=== PATIENT | female | born 1995 | race Two or more races ===

== ENCOUNTER 2023-09-06 18:32 | Emergency (ER) | payer OTHER ==
[~2023-09-06] VITALS: Ht 152.4 cm; Wt 77.1 kg
[2023-09-06] MEDS ORDERED: ACETAMINOPHEN 500 MG GEL..CAP PO ONE (19:30)
[2023-09-06 19:44] LABS: HEMOGLOBIN 12.2 g/dL (12.0-15.00); MEAN CELL VOLUME 86.8 fL (80.00-100.00); MEAN CORPUSCULAR HEMOGLOBIN 30.2 pg (27.00-32.0); MEAN CORPUSCULAR HGB CONC 34.8 g/dl (32.0-36.0); PLATELET COUNT 229 K/uL (150-450); RED BLOOD COUNT 4.03 M/uL (4.00-6.00); RED CELL DISTRIBUTION WIDTH 13.8 % (11.5-14.5)
[2023-09-06 21:19] LABS: URINE APPEARANCE Clear; URINE BILIRRUBIN Negative (NEGATIVE); URINE BLOOD Negative; URINE COLOR Yellow; URINE GLUCOSE Negative (NEGATIVE); URINE LEUKOCYTE Negative; URINE NITRATE Negative; URINE PROTEIN Negative (NEGATIVE); URINE UROBILINOGEN 0.2 E.U./dl
[2023-09-06 21:23] LABS: URINE BACTERIA 2313.2 uL (0.0-1933); URINE EPITHELIAL CELLS 36.2 uL (0.0-38.8); URINE RBC 8.3 uL (0.0-20.8); URINE WBC 17.1 uL (0.0-23.2)
[2023-09-06] MEDS ORDERED: NITROFURANTOIN100 MG PO (21:40)
== END 2023-09-06 22:12 | disposition home or self-care (01) ==
LOC: ER 18:33
PROVIDERS: General Practice
DX: O23.42 Unspecified infection of urinary tract in pregnancy, second trimester (principal); O34.12 Maternal care for benign tumor of corpus uteri, second trimester; O32.1XX0 Maternal care for breech presentation, not applicable or unspecified; N39.0 Urinary tract infection, site not specified; Z3A.19 19 weeks gestation of pregnancy

== ENCOUNTER 2023-09-21 01:18 | Inpatient (IN) | payer OTHER ==
[~2023-09-21] VITALS: Ht 152.4 cm; Wt 77.1 kg
[~2023-09-21 01:18] MED LIST: NITROFURANTOIN100 MG PO
[2023-09-21] MEDS ORDERED: RINGERS SOLUTION,LACTATED 1,000 ML IV SCH (01:30)
[2023-09-21] MEDS ORDERED: PRENATAL TABLE1 EAC1 PO (01:40)
[2023-09-21] MEDS ORDERED: MIRALAX17 GM PO (01:40)
[2023-09-21 02:01] LABS: PH,URINE 7.5 (5.0-8.0); URINE APPEARANCE Clear; URINE BILIRRUBIN Negative (NEGATIVE); URINE BLOOD Small; URINE COLOR Yellow; URINE GLUCOSE Negative (NEGATIVE); URINE LEUKOCYTE Moderate; URINE NITRATE Negative; URINE PROTEIN Negative (NEGATIVE); URINE UROBILINOGEN 0.2 E.U./dl
[2023-09-21 02:05] LABS: URINE EPITHELIAL CELLS 43.7 uL (0.0-38.8); URINE RBC 34.2 uL (0.0-20.8); URINE WBC 223.5 uL (0.0-23.2)
[2023-09-21] MEDS ORDERED: MORPHINE SULFATE 4 MG/ML VIAL IV STA ×2 (02:09→13:05)
[2023-09-21 02:19] LABS: HEMATOCRIT 35.9 % (36.0-45.00); HEMOGLOBIN 12.2 g/dL (12.0-15.00); INR 0.97; MEAN CELL VOLUME 87.1 fL (80.00-100.00); MEAN CORPUSCULAR HEMOGLOBIN 29.5 pg (27.00-32.0); MEAN CORPUSCULAR HGB CONC 33.9 g/dl (32.0-36.0); PARTIAL THROMBOPLASTIN TIME 27.6 SECONDS (22.0-34.0); PLATELET COUNT 233 K/uL (150-450); PROTHROMBIN TIME 10.2 SECONDS (9.0-11.5); RED BLOOD COUNT 4.12 M/uL (4.00-6.00); RED CELL DISTRIBUTION WIDTH 13.2 % (11.5-14.5)
[2023-09-21] MEDS ORDERED: CEFOXITIN SODIUM 2,000 MG VIAL IV SCH (02:20)
[2023-09-21 02:50] LABS: ALBUMIN 2.7 gm/dL (3.4-5.0); BILIRUBIN TOTAL 0.37 mg/dL (0.3-1.2); CALCIUM 9.1 mg/dL (8.5-10.1); CREATININE SERUM 0.56 mg/dL (0.55-1.02); GFR 129.86; POTASSIUM 4.08 mEq/L (3.5-5.1); TOTAL PROTEIN 6.7 gm/dL (6.4-8.2)
[2023-09-21] MEDS ORDERED: MORPHINE SULFATE 4 MG/ML VIAL IV PRN (04:40)
[2023-09-21] MEDS ORDERED: OXYTOCIN 20 UNITS/500ML RL PIGGYBAG IV SCH (12:15)
[2023-09-21] MEDS ORDERED: MISOPROSTOL 100 MCG TABLET VAG STA (12:30)
[2023-09-21] MEDS ORDERED: ERYTHROMYCIN BASE 1 GM TUBE OP SCH (13:45)
[2023-09-21] MEDS ORDERED: OXYTOCIN 1,000 ML IV SCH (13:45)
[2023-09-21] MEDS ORDERED: ACETAMINOPHEN WITH CODEINE 1 UDTAB TABLET PO PRN (13:45)
[2023-09-21] MEDS ORDERED: CHLORHEXIDINE GLUCONATE 120 ML BOTTLE TP SCH (13:45)
[2023-09-21] MEDS ORDERED: KETOROLAC TROMETHAMINE 10 MG TABLET PO SCH (18:00)
== END 2023-09-22 10:33 | disposition home or self-care (01) | DRG 805 ==
LOC: LDR → OB/GYN 15:36
PROVIDERS: ADMIT Obstetrics & Gynecology Maternal & Fetal Medicine; ATTEND Obstetrics & Gynecology Maternal & Fetal Medicine
PROC: 10E0XZZ Delivery of Products of Conception, External Approach (ICD-10-PCS; principal; 2023-09-21)
PROC: 4A1HXCZ Monitoring of Products of Conception, Cardiac Rate, External Approach (ICD-10-PCS; 2023-09-21)
PROC: BY4CZZZ Ultrasonography of Second Trimester, Single Fetus (ICD-10-PCS; 2023-09-21)
PROC: 3E033VJ Introduction of Other Hormone into Peripheral Vein, Percutaneous Approach (ICD-10-PCS; 2023-09-21)
PROC: 3E0P7VZ Introduction of Hormone into Female Reproductive, Via Natural or Artificial Opening (ICD-10-PCS; 2023-09-21)
DX: O36.4XX0 Maternal care for intrauterine death, not applicable or unspecified (principal); O34.32 Maternal care for cervical incompetence, second trimester; Z37.1 Single stillbirth; O34.12 Maternal care for benign tumor of corpus uteri, second trimester; Z3A.21 21 weeks gestation of pregnancy; Z20.822 Contact with and (suspected) exposure to COVID-19

== ENCOUNTER 2024-05-06 06:58 | Day surgery (SDC) | payer OTHER ==
[2024-05-04 15:16] LABS: HEMATOCRIT 36.5 % (36.0-45.00); HEMOGLOBIN 12.3 g/dL (12.0-15.00); MEAN CELL VOLUME 85.8 fL (80.00-100.00); MEAN CORPUSCULAR HGB CONC 33.8 g/dl (32.0-36.0); PLATELET COUNT 252 K/uL (150-450); RED BLOOD COUNT 4.26 M/uL (4.00-6.00)
[2024-05-04 15:50] LABS: INR 0.94; PARTIAL THROMBOPLASTIN TIME 26.5 SECONDS (22.0-34.0); PROTHROMBIN TIME 10.3 SECONDS (9.0-11.5)
[2024-05-04 15:56] LABS: ALBUMIN 2.9 gm/dL (3.4-5.0); BILIRUBIN TOTAL 0.2 mg/dL (0.3-1.2); CALCIUM 9.4 mg/dL (8.5-10.1); CREATININE SERUM 0.57 mg/dL (0.55-1.02); GFR 127.23; POTASSIUM 4.07 mEq/L (3.5-5.1); TOTAL PROTEIN 6.9 gm/dL (6.4-8.2)
[~2024-05-06 06:58] MED LIST changes: +MIRALAX17 GM PO; +PEPCID AC10 MG PO; +PRENATAL TABLE1 EAC1 PO; +TYLENOL325 MG PO
[2024-05-06] MEDS ORDERED: POVIDONE-IODINE 118 ML BOTT TOP SCH (10:15)
[2024-05-06] MEDS ORDERED: MORPHINE SULFATE 4 MG/ML VIAL IV ONE (12:50)
== END 2024-05-06 14:40 | disposition home or self-care (01) ==
LOC: CIR.AMB 06:58
PROVIDERS: ATTEND Obstetrics & Gynecology Maternal & Fetal Medicine
DX: O34.32 Maternal care for cervical incompetence, second trimester (principal); Z3A.14 14 weeks gestation of pregnancy

== ENCOUNTER 2024-07-24 10:03 | Inpatient (IN) | payer OTHER ==
[~2024-07-24] VITALS: Ht 152.4 cm; Wt 83.5 kg
[2024-07-24 10:46] VITALS: BP 100/67
[2024-07-24] MEDS ORDERED: BETAMETHASONE ACETATE,SOD PHOS 30 MG/5 ML ML IM STA (11:14)
[2024-07-24] MEDS ORDERED: MAGNESIUM SULFATE IN WATER 4 GM/100 ML PIGGYBACK IV ONE (11:15)
[2024-07-24] MEDS ORDERED: MAGNESIUM SULFATE IN WATER 500 ML IV SCH (11:15)
[2024-07-24] MEDS ORDERED: RINGERS SOLUTION,LACTATED 1,000 ML IV SCH (11:45)
[2024-07-24 12:17] LABS: BASO % 0.3 % (0.1-1.2); EOS # 0.11 (0.04-0.54); EOS % 0.9 % (0.7-7.0); HEMATOCRIT 33.9 % (34.1-44.9); HEMOGLOBIN 11.2 g/dL (11.2-15.7); LYMPH # 1.94 (1.18-3.74); LYMPH % 15.6 % (19.3-53.1); MEAN CORPUSCULAR HEMOGLOBIN 28.8 pg (25.6-32.2); MONO # 0.69 (0.24-0.82); MONO % 5.5 % (4.7-12.5); NEUT # 9.57 (1.56-6.13); NEUT % 76.8 % (34.0-71.1); PLATELET COUNT 250 K/uL (163-369); RED BLOOD COUNT 3.89 M/uL (3.93-5.22); RED CELL DISTRIBUTION WIDTH 13.2 % (11.6-14.4)
[2024-07-24 12:41] LABS: INR 0.94; PARTIAL THROMBOPLASTIN TIME 26.6 SECONDS (22.0-34.0); PROTHROMBIN TIME 10.3 SECONDS (9.0-11.5)
[2024-07-24 12:56] LABS: ALBUMIN 2.6 gm/dL (3.4-5.0); BILIRUBIN TOTAL 0.17 mg/dL (0.3-1.2); CALCIUM 8.7 mg/dL (8.5-10.1); CREATININE SERUM 0.48 mg/dL (0.55-1.02); GFR 155.14; GLOBULINA 3.8 G/DL (2.4-3.5); POTASSIUM 4.26 mEq/L (3.5-5.1); TOTAL PROTEIN 6.4 gm/dL (6.4-8.2)
[2024-07-24] MEDS ORDERED: CEFOXITIN SODIUM 2,000 MG VIAL IV SCH (13:00)
[2024-07-24 15:06] VITALS: BP 107/68
[2024-07-24] MEDS ORDERED: ACETAMINOPHEN 500 MG GEL..CAP PO ONE (18:50)
[2024-07-24 19:54] VITALS: BP 93/57
[2024-07-24] MEDS ORDERED: ACETAMINOPHEN 500 MG GEL..CAP PO PRN (21:15)
[2024-07-24 23:04] VITALS: BP 106/70; O2SAT 100
[2024-07-25 04:04] VITALS: BP 104/71
[2024-07-25 04:24] VITALS: BP 104/71
[2024-07-25 07:16] VITALS: BP 98/62
[2024-07-25 11:30] VITALS: BP 104/72
[2024-07-25] MEDS ORDERED: BETAMETHASONE ACETATE,SOD PHOS 30 MG/5 ML ML IM ONE (11:30)
[2024-07-25] MEDS ORDERED: NIFEDIPINE 30 MG TAB.SA.OSM PO SCH ×2 (12:00)
[2024-07-25 15:33] VITALS: BP 96/63
[2024-07-25 17:05] VITALS: BP 107/72
[2024-07-26] VITALS: BP 95/65
[2024-07-26 08:00] VITALS: BP 90/60
== END 2024-07-26 12:39 | disposition home or self-care (01) | DRG 833 ==
LOC: NST 10:03 → LDR 10:55 → OB/GYN 07-25 15:14
PROVIDERS: ADMIT Obstetrics & Gynecology Maternal & Fetal Medicine; ATTEND Obstetrics & Gynecology Maternal & Fetal Medicine
PROC: 4A1HXCZ Monitoring of Products of Conception, Cardiac Rate, External Approach (ICD-10-PCS; principal; 2024-07-24)
DX: O34.32 Maternal care for cervical incompetence, second trimester (principal); Z3A.24 24 weeks gestation of pregnancy

== ENCOUNTER 2024-08-03 17:30 | Inpatient (IN) | payer OTHER ==
[~2024-08-03] VITALS: Ht 152.4 cm; Wt 82.6 kg
[~2024-08-03 17:30] MED LIST changes: +CEFOXITIN SODIUM 2,000 MG VIAL IV ONE; +MAGNESIUM SULFATE IN WATER 0.04 GM/ML IV.SOLN IV ONE
[2024-08-03 17:41] VITALS: BP 121/68
[2024-08-03 17:56] LABS: BASO % 0.2 % (0.1-1.2); EOS # 0.03 (0.04-0.54); EOS % 0.2 % (0.7-7.0); HEMATOCRIT 36.6 % (34.1-44.9); HEMOGLOBIN 12.2 g/dL (11.2-15.7); LYMPH # 2.44 (1.18-3.74); LYMPH % 14.8 % (19.3-53.1); MEAN CORPUSCULAR HEMOGLOBIN 28.2 pg (25.6-32.2); MONO # 0.92 (0.24-0.82); MONO % 5.6 % (4.7-12.5); NEUT # 12.87 (1.56-6.13); NEUT % 77.7 % (34.0-71.1); PLATELET COUNT 296 K/uL (163-369); RED BLOOD COUNT 4.32 M/uL (3.93-5.22); RED CELL DISTRIBUTION WIDTH 12.9 % (11.6-14.4)
[2024-08-03] MEDS ORDERED: RINGERS SOLUTION,LACTATED 1,000 ML IV SCH (18:00)
[2024-08-03] MEDS ORDERED: CEFOXITIN SODIUM 2,000 MG VIAL IV SCH (18:00)
[2024-08-03] MEDS ORDERED: MAGNESIUM SULFATE IN WATER 500 ML IV SCH (18:00)
[2024-08-03 18:18] LABS: INR < 0.93; PROTHROMBIN TIME 10.2 SECONDS (9.0-11.5)
[2024-08-03 18:24] LABS: ALBUMIN 2.8 gm/dL (3.4-5.0); BILIRUBIN TOTAL 0.19 mg/dL (0.3-1.2); CALCIUM 9.7 mg/dL (8.5-10.1); CREATININE SERUM 0.56 mg/dL (0.55-1.02); GFR 128.9; GLOBULINA 4.2 G/DL (2.4-3.5); POTASSIUM 4.24 mEq/L (3.5-5.1)
[2024-08-03 19:36] VITALS: BP 103/71
[2024-08-03 23:37] VITALS: BP 98/63
[2024-08-04 04:00] VITALS: BP 100/60
[2024-08-04 06:19] VITALS: BP 95/62; O2SAT 98
[2024-08-04] MEDS ORDERED: NIFEDIPINE 60 MG TAB.SA.OSM PO ONE (08:23)
[2024-08-04] MEDS ORDERED: PNV,CALCIUM 72/IRON/FOLIC ACID 1 TAB TABLET PO SCH (09:00)
[2024-08-04] MEDS ORDERED: ENOXAPARIN SODIUM 40 MG/0.4 ML SYRINGE SUBCUTANEO SCH (09:00)
[2024-08-04] MEDS ORDERED: NIFEDIPINE 60 MG TAB.SA.OSM PO SCH (09:00)
[2024-08-04 10:59] VITALS: BP 114/72
[2024-08-04 15:46] VITALS: BP 99/60
[2024-08-04 20:23] VITALS: BP 103/66
[2024-08-05 00:22] VITALS: BP 91/59
[2024-08-05 05:00] VITALS: BP 97/64
[2024-08-05 08:10] VITALS: BP 90/65
[2024-08-05 13:06] VITALS: BP 106/71; O2SAT 98
[2024-08-05 16:00] VITALS: BP 115/77
[2024-08-06 00:39] VITALS: BP 102/64
[2024-08-06 05:49] VITALS: BP 100/60
[2024-08-06 08:36] VITALS: BP 104/65; O2SAT 98
[2024-08-06 13:20] VITALS: BP 100/67; O2SAT 98
[2024-08-06 16:00] VITALS: BP 109/68; O2SAT 97
[2024-08-06 20:00] VITALS: BP 115/74
[2024-08-06] MEDS ORDERED: PATIENTS OWN MEDICATION (MEDICAMENTO EN PISO NEVERA) VAG SCH (21:00)
[2024-08-07 01:33] VITALS: BP 100/64
[2024-08-07 06:32] VITALS: BP 101/60
[2024-08-07 09:21] VITALS: BP 94/60
[2024-08-07 16:47] VITALS: BP 115/71
[2024-08-08] VITALS: BP 105/68
[2024-08-08 09:21] VITALS: BP 102/64
[2024-08-08 14:47] VITALS: BP 100/65
[2024-08-08 17:53] VITALS: BP 113/74
[2024-08-08 17:54] VITALS: BP 113/74
[2024-08-08 21:31] VITALS: BP 102/70
[2024-08-09 00:38] VITALS: BP 117/67
[2024-08-09 06:16] VITALS: BP 97/64
[2024-08-09 09:04] VITALS: BP 102/68
[2024-08-09] MEDS ORDERED: ACETAMINOPHEN 500 MG GEL..CAP PO PRN (11:45)
[2024-08-09 16:20] VITALS: BP 117/73
[2024-08-10 00:11] VITALS: BP 105/62
[2024-08-10 08:00] VITALS: BP 103/64
[2024-08-10 16:00] VITALS: BP 114/75
[2024-08-10 21:29] VITALS: BP 96/60
[2024-08-11] VITALS: BP 90/50
[2024-08-11 08:00] VITALS: BP 103/68
[2024-08-11] MEDS ORDERED: FAMOtidine 20 MG TABLET PO SCH (09:00)
[2024-08-11 16:31] VITALS: BP 97/60
[2024-08-12] VITALS: BP 103/70
[2024-08-12 08:58] VITALS: BP 115/57
[2024-08-12 13:54] VITALS: BP 103/63
[2024-08-12 16:38] VITALS: BP 98/64
[2024-08-13] VITALS: BP 101/58
[2024-08-13 08:40] VITALS: BP 105/54
[2024-08-13] MEDS ORDERED: DIPHTH,PERTUSS(ACELL),TET VAC 0.5 ML VIAL IM NR (09:00)
[2024-08-13 10:20] LABS: BASO % 0.2 % (0.1-1.2); EOS # 0.07 (0.04-0.54); EOS % 0.6 % (0.7-7.0); HEMATOCRIT 33.8 % (34.1-44.9); HEMOGLOBIN 11.2 g/dL (11.2-15.7); LYMPH # 1.55 (1.18-3.74); LYMPH % 14.3 % (19.3-53.1); MEAN CORPUSCULAR HEMOGLOBIN 28.2 pg (25.6-32.2); MONO # 0.54 (0.24-0.82); NEUT # 8.52 (1.56-6.13); NEUT % 78.7 % (34.0-71.1); PLATELET COUNT 239 K/uL (163-369); RED BLOOD COUNT 3.97 M/uL (3.93-5.22); RED CELL DISTRIBUTION WIDTH 13.2 % (11.6-14.4)
[2024-08-13 11:05] LABS: INR 0.98; PARTIAL THROMBOPLASTIN TIME 25.1 SECONDS (22.0-34.0); PROTHROMBIN TIME 10.7 SECONDS (9.0-11.5)
[2024-08-13 13:27] VITALS: BP 105/67
[2024-08-13 17:22] VITALS: BP 115/81
[2024-08-14 01:00] VITALS: BP 99/64
[2024-08-14 08:00] VITALS: BP 110/78
[2024-08-14 16:46] VITALS: BP 106/71
[2024-08-15 00:18] VITALS: BP 97/64
[2024-08-15 08:00] VITALS: BP 92/61
[2024-08-15 17:18] VITALS: BP 130/82
[2024-08-16 00:13] VITALS: BP 98/66
[2024-08-16 08:00] VITALS: BP 90/55
[2024-08-16 16:00] VITALS: BP 98/65
[2024-08-16 23:46] VITALS: BP 104/67
[2024-08-17 08:00] VITALS: BP 108/70
[2024-08-17 15:50] VITALS: BP 92/69
[2024-08-18] MEDS ORDERED: MAGNESIUM SULFATE IN WATER 0.04 GM/ML IV.SOLN IV ONE ×2 (00:03→01:00)
[2024-08-18 00:32] VITALS: BP 110/79
[2024-08-18 03:00] VITALS: BP 98/61
[2024-08-18 06:22] VITALS: BP 95/67; O2SAT 97
[2024-08-18 13:51] VITALS: BP 96/63
[2024-08-18] MEDS ORDERED: ACETAMINOPHEN 500 MG GEL..CAP PO PRN (14:45)
[2024-08-18 16:05] VITALS: BP 92/60
[2024-08-19 01:24] VITALS: BP 100/63
[2024-08-19 08:22] VITALS: BP 111/79
[2024-08-19 12:26] VITALS: BP 117/80
[2024-08-19] MEDS ORDERED: NIFEDIPINE 30 MG TAB.SA.OSM PO ONE (14:42)
[2024-08-19 16:04] VITALS: BP 111/70
[2024-08-19] MEDS ORDERED: NIFEDIPINE 30 MG TAB.SA.OSM PO SCH (17:00)
[2024-08-20] VITALS: BP 91/56
[2024-08-20 08:00] VITALS: BP 97/57
[2024-08-20 16:18] VITALS: BP 118/79
[2024-08-21 00:50] VITALS: BP 100/66
[2024-08-21 08:00] VITALS: BP 103/66
[2024-08-21 17:04] VITALS: BP 108/71
[2024-08-21 20:56] VITALS: BP 100/61
[2024-08-21 23:58] VITALS: BP 112/73
[2024-08-22 08:49] VITALS: BP 90/60
[2024-08-22 18:06] VITALS: BP 109/71
[2024-08-23] VITALS: BP 101/67
[2024-08-23 05:00] VITALS: BP 101/69
[2024-08-23 08:37] VITALS: BP 98/66
[2024-08-23 16:36] VITALS: BP 105/70
[2024-08-24 01:32] VITALS: BP 97/63
[2024-08-24 08:00] VITALS: BP 107/71
[2024-08-24] MEDS ORDERED: ONDANSETRON 4 MG TAB.RAPDIS PO NR (14:00)
[2024-08-24 15:55] VITALS: BP 90/56
[2024-08-24 23:54] VITALS: BP 96/65
[2024-08-25 08:46] VITALS: BP 124/77
== END 2024-08-25 10:31 | disposition home or self-care (01) | DRG 831 ==
LOC: LDR 17:30 → OB/GYN 08-04 08:51
PROVIDERS: Obstetrics & Gynecology Gynecology; ADMIT Obstetrics & Gynecology Maternal & Fetal Medicine; ATTEND Obstetrics & Gynecology Maternal & Fetal Medicine
PROC: 4A1HXCZ Monitoring of Products of Conception, Cardiac Rate, External Approach (ICD-10-PCS; principal; 2024-08-03)
PROC: BY4CZZZ Ultrasonography of Second Trimester, Single Fetus (ICD-10-PCS; 2024-08-06)
PROC: BU4CZZZ Ultrasonography of Uterus and Ovaries (ICD-10-PCS; 2024-08-06)
PROC: BY4CZZZ Ultrasonography of Second Trimester, Single Fetus (ICD-10-PCS; 2024-08-12)
PROC: BU4CZZZ Ultrasonography of Uterus and Ovaries (ICD-10-PCS; 2024-08-12)
PROC: BU4CZZZ Ultrasonography of Uterus and Ovaries (ICD-10-PCS; 2024-08-24)
PROC: BU4CZZZ Ultrasonography of Uterus and Ovaries (ICD-10-PCS; 2024-08-24)
DX: O34.32 Maternal care for cervical incompetence, second trimester (principal); O60.02 Preterm labor without delivery, second trimester; O26.872 Cervical shortening, second trimester; O36.8120 Decreased fetal movements, second trimester, not applicable or unspecified; O26.842 Uterine size-date discrepancy, second trimester; Z3A.27 27 weeks gestation of pregnancy

== ENCOUNTER 2024-09-02 18:35 | Inpatient (IN) | payer OTHER ==
[~2024-09-02] VITALS: Ht 152.4 cm; Wt 82.6 kg
[~2024-09-02 18:35] MED LIST changes: -CEFOXITIN SODIUM 2,000 MG VIAL IV ONE; -MAGNESIUM SULFATE IN WATER 0.04 GM/ML IV.SOLN IV ONE
[2024-09-02 18:55] VITALS: BP 105/71
[2024-09-02] MEDS ORDERED: BETAMETHASONE ACETATE,SOD PHOS 30 MG/5 ML ML IM SCH (19:30)
[2024-09-02] MEDS ORDERED: MAGNESIUM SULFATE IN WATER 500 ML IV SCH (19:30)
[2024-09-02] MEDS ORDERED: RINGERS SOLUTION,LACTATED 1,000 ML IV SCH (19:30)
[2024-09-02] MEDS ORDERED: MAGNESIUM SULFATE IN WATER 100 ML IV NR (19:45)
[2024-09-02] MEDS ORDERED: NIFEDIPINE20 MG PO (20:28)
[2024-09-02 20:49] LABS: BASO % 0.3 % (0.1-1.2); EOS # 0.06 (0.04-0.54); EOS % 0.4 % (0.7-7.0); LYMPH # 2.42 (1.18-3.74); LYMPH % 16.6 % (19.3-53.1); MEAN PLATELET VOLUME 11.80 fl (9.4-12.4); MONO # 0.97 (0.24-0.82); MONO % 6.6 % (4.7-12.5); NEUT # 10.87 (1.56-6.13); NEUT % 74.5 % (34.0-71.1); RED CELL DISTRIBUTION WIDTH 13.7 % (11.6-14.4)
[2024-09-02] MEDS ORDERED: NIFEDIPINE 30 MG TAB.SA.OSM PO SCH (21:00)
[2024-09-02 21:08] LABS: INR 0.96
[2024-09-02 21:14] LABS: ALT/SGPT 14.0 U/L (12-78); AST/SGOT 7.0 U/L (15-37); BILIRUBIN TOTAL 0.19 mg/dL (0.3-1.2); BUN CREA RATIO 18.0 (7.0-25.0); CREATININE SERUM 0.51 mg/dL (0.55-1.02); GFR 143.59; GLOBULINA 4.1 G/DL (2.4-3.5); GLUCOSE FASTING 76.0 mg/dL (65-100); OSMOLALITY SERUM 279.0 MOSM/KG (275-295)
[2024-09-02 23:22] VITALS: BP 107/68
[2024-09-03 03:14] VITALS: BP 105/67
[2024-09-03] MEDS ORDERED: ACETAMINOPHEN 500 MG GEL..CAP PO PRN (04:45)
[2024-09-03 06:28] VITALS: BP 96/59; O2SAT 97
[2024-09-03] MEDS ORDERED: FAMOTIDINE/PF 20 MG in 0.9 % SODIUM CHLORIDE 8 ML IV PUSH SCH (09:00)
[2024-09-03] MEDS ORDERED: ENOXAPARIN SODIUM 40 MG/0.4 ML SYRINGE SUBCUTANEO SCH (09:00)
[2024-09-03] MEDS ORDERED: PNV,CALCIUM 72/IRON/FOLIC ACID 1 TAB TABLET PO SCH (09:00)
[2024-09-03 11:40] VITALS: BP 108/70
[2024-09-03 13:03] VITALS: BP 124/83
[2024-09-03 16:00] VITALS: BP 107/66
[2024-09-04 02:22] VITALS: BP 106/68
[2024-09-04 08:21] VITALS: BP 94/62
[2024-09-04] MEDS ORDERED: NIFEDIPINE 30 MG TAB.SA.OSM PO NR (11:00)
[2024-09-04 17:32] VITALS: BP 100/68
[2024-09-04] MEDS ORDERED: NIFEDIPINE 30 MG TAB.SA.OSM PO SCH (21:00)
[2024-09-05 00:52] VITALS: BP 101/64
[2024-09-05 08:32] VITALS: BP 123/70
[2024-09-05] MEDS ORDERED: ONDANSETRON 4 MG TAB.RAPDIS PO SCH (13:00)
[2024-09-05 15:52] VITALS: BP 108/69
[2024-09-05 23:34] VITALS: BP 104/64
[2024-09-06 08:00] VITALS: BP 107/67
[2024-09-06 17:06] VITALS: BP 110/75
[2024-09-06 23:56] VITALS: BP 104/67
[2024-09-07 09:02] VITALS: BP 107/66
[2024-09-07 15:40] VITALS: BP 96/60
[2024-09-08 01:00] VITALS: BP 113/71
[2024-09-08 08:35] VITALS: BP 103/64
[2024-09-08 16:21] VITALS: BP 107/76
[2024-09-09] VITALS: BP 101/62
[2024-09-09 08:52] VITALS: BP 104/70
[2024-09-09 16:00] VITALS: BP 112/76
[2024-09-10 00:38] VITALS: BP 99/63
[2024-09-10 08:42] VITALS: BP 103/69; O2SAT 99
[2024-09-10 16:00] VITALS: BP 105/69
[2024-09-11 00:45] VITALS: BP 106/67
[2024-09-11 08:39] VITALS: BP 115/72
[2024-09-11 16:00] VITALS: BP 100/65
[2024-09-11] MEDS ORDERED: MAGNESIUM HYDROXIDE 30 ML BLIST.PACK PO SCH (21:00)
[2024-09-12 01:02] VITALS: BP 101/63
[2024-09-12 08:32] VITALS: BP 100/63
[2024-09-12 18:33] VITALS: BP 112/67
[2024-09-13] VITALS: BP 95/59
[2024-09-13 08:38] VITALS: BP 97/63
[2024-09-13 15:14] LABS: BASO % 0.4 % (0.1-1.2); EOS # 0.06 (0.04-0.54); EOS % 0.4 % (0.7-7.0); LYMPH # 1.91 (1.18-3.74); LYMPH % 13.7 % (19.3-53.1); MEAN PLATELET VOLUME 11.20 fl (9.4-12.4); MONO # 1.00 (0.24-0.82); MONO % 7.2 % (4.7-12.5); NEUT # 10.59 (1.56-6.13); NEUT % 75.7 % (34.0-71.1); RED CELL DISTRIBUTION WIDTH 14.1 % (11.6-14.4)
[2024-09-13 15:46] LABS: INR 0.96
[2024-09-13 16:00] VITALS: BP 133/71
[2024-09-14] VITALS: BP 107/68
[2024-09-14 08:39] VITALS: BP 107/67; O2SAT 99
[2024-09-14 18:31] VITALS: BP 93/59
[2024-09-15 00:08] VITALS: BP 110/66
[2024-09-15 08:21] VITALS: BP 99/64
[2024-09-15] MEDS ORDERED: ACETAMINOPHEN 500 MG GEL..CAP PO PRN (16:45)
[2024-09-15 17:08] VITALS: BP 100/63
[2024-09-16 00:01] VITALS: BP 113/80
[2024-09-16 08:00] VITALS: BP 90/52
[2024-09-16 16:13] VITALS: BP 102/62
[2024-09-17 02:20] VITALS: BP 100/66
[2024-09-17 08:00] VITALS: BP 99/60
[2024-09-17 17:01] VITALS: BP 100/68
[2024-09-18 02:47] VITALS: BP 100/62
[2024-09-18 08:58] VITALS: BP 99/63
[2024-09-18 16:26] VITALS: BP 114/62
[2024-09-19] VITALS: BP 98/62
[2024-09-19 08:17] VITALS: BP 93/67
[2024-09-19 16:00] VITALS: BP 118/75
[2024-09-20 00:35] VITALS: BP 104/66
[2024-09-20 07:54] VITALS: BP 111/72
[2024-09-20 15:55] VITALS: BP 109/74
[2024-09-21 00:35] VITALS: BP 97/65
[2024-09-21 09:09] VITALS: BP 100/66
[2024-09-21 16:07] VITALS: BP 100/65
[2024-09-22 01:20] VITALS: BP 99/69
[2024-09-22 09:43] VITALS: BP 105/63
[2024-09-22 16:14] VITALS: BP 103/65
[2024-09-23 00:45] VITALS: BP 100/65
[2024-09-23 08:06] VITALS: BP 97/68
[2024-09-23 15:53] VITALS: BP 101/66
[2024-09-24 02:00] VITALS: BP 94/60
[2024-09-24 08:02] VITALS: BP 96/61
[2024-09-24 16:00] VITALS: BP 100/65
[2024-09-25] VITALS: BP 100/65
[2024-09-25 09:01] VITALS: BP 98/63
[2024-09-25 16:22] VITALS: BP 106/67
[2024-09-26 00:08] VITALS: BP 109/68
[2024-09-26 08:00] VITALS: BP 107/67
[2024-09-26 15:26] VITALS: BP 100/63
[2024-09-26 23:56] VITALS: BP 101/68
[2024-09-27 08:00] VITALS: BP 98/63
[2024-09-27 15:42] VITALS: BP 90/61
[2024-09-28 00:08] VITALS: BP 95/65
[2024-09-28 08:30] VITALS: BP 100/60; O2SAT 99
[2024-09-28 09:33] LABS: BASO % 0.5 % (0.1-1.2); EOS # 0.09 (0.04-0.54); EOS % 1.0 % (0.7-7.0); LYMPH # 1.87 (1.18-3.74); LYMPH % 21.3 % (19.3-53.1); MEAN PLATELET VOLUME 10.70 fl (9.4-12.4); MONO # 0.64 (0.24-0.82); MONO % 7.3 % (4.7-12.5); NEUT # 5.94 (1.56-6.13); NEUT % 67.7 % (34.0-71.1); RED CELL DISTRIBUTION WIDTH 14.2 % (11.6-14.4)
[2024-09-28 09:56] LABS: URINE APPEARANCE Clear; URINE BILIRRUBIN Negative (NEGATIVE); URINE BLOOD Small; URINE COLOR Dark Yellow; URINE GLUCOSE Negative (NEGATIVE); URINE KETONE Trace (NEGATIVE); URINE LEUKOCYTE Trace; URINE NITRATE Negative; URINE PROTEIN Trace (NEGATIVE); URINE UROBILINOGEN 1.0 E.U./dl
[2024-09-28 09:59] LABS: URINE BACTERIA 555.6 uL (0.0-1933); URINE EPITHELIAL CELLS 20.1 uL (0.0-38.8); URINE RBC 61.3 uL (0.0-20.8); URINE WBC 47.9 uL (0.0-23.2)
[2024-09-28 10:06] LABS: URINE CAST 0.58 uL (0.0-1.40)
[2024-09-28 10:31] LABS: ALT/SGPT 15.0 U/L (12-78); AST/SGOT 9.0 U/L (15-37); BILIRUBIN TOTAL 0.22 mg/dL (0.3-1.2); BUN CREA RATIO 14.0 (7.0-25.0); CREATININE SERUM 0.58 mg/dL (0.55-1.02); GFR 123.79; GLOBULINA 3.9 G/DL (2.4-3.5); GLUCOSE FASTING 121.0 mg/dL (65-100); OSMOLALITY SERUM 283.0 MOSM/KG (275-295)
[2024-09-28 10:35] LABS: INR 0.98
[2024-09-28 16:19] VITALS: BP 109/76
[2024-09-29] VITALS: BP 98/65
[2024-09-29 09:11] VITALS: BP 119/78; O2SAT 99
[2024-09-29 16:16] VITALS: BP 128/74
[2024-09-29] MEDS ORDERED: ACETAMINOPHEN 500 MG GEL..CAP PO ONE (19:30)
[2024-09-30 00:23] VITALS: BP 101/66
[2024-09-30 09:14] VITALS: BP 100/64; O2SAT 99
[2024-09-30 17:20] VITALS: BP 100/64
[2024-10-01] VITALS: BP 92/60
[2024-10-01 09:02] VITALS: BP 125/76
== END 2024-10-01 09:27 | disposition home or self-care (01) | DRG 833 ==
LOC: LDR 18:35 → OB/GYN 09-03 08:43
PROVIDERS: Obstetrics & Gynecology Gynecology; ADMIT Obstetrics & Gynecology Maternal & Fetal Medicine; ATTEND Obstetrics & Gynecology Maternal & Fetal Medicine
PROC: 4A1HXCZ Monitoring of Products of Conception, Cardiac Rate, External Approach (ICD-10-PCS; principal; 2024-09-02)
PROC: BY4FZZZ Ultrasonography of Third Trimester, Single Fetus (ICD-10-PCS; 2024-09-07)
PROC: BU4CZZZ Ultrasonography of Uterus and Ovaries (ICD-10-PCS; 2024-09-07)
PROC: BY4FZZZ Ultrasonography of Third Trimester, Single Fetus (ICD-10-PCS; 2024-09-27)
PROC: BU4CZZZ Ultrasonography of Uterus and Ovaries (ICD-10-PCS; 2024-09-27)
PROC: BY47ZZZ Ultrasonography of Fetal Umbilical Cord (ICD-10-PCS; 2024-09-27)
DX: O26.873 Cervical shortening, third trimester (principal); O26.843 Uterine size-date discrepancy, third trimester; O36.8130 Decreased fetal movements, third trimester, not applicable or unspecified; O34.33 Maternal care for cervical incompetence, third trimester; O36.5930 Maternal care for other known or suspected poor fetal growth, third trimester, not applicable or unspecified; Z3A.29 29 weeks gestation of pregnancy

== ENCOUNTER 2024-10-10 21:55 | Inpatient (IN) | payer OTHER ==
[~2024-10-10] VITALS: Ht 152.4 cm; Wt 82.1 kg
[~2024-10-10 21:55] MED LIST changes: +NIFEDIPINE20 MG PO
[2024-10-10] MEDS ORDERED: BETAMETHASONE ACETATE,SOD PHOS 30 MG/5 ML ML ONE (22:14)
[2024-10-10 22:15] VITALS: BP 120/80
[2024-10-10] MEDS ORDERED: AMPICILLIN SODIUM 2,000 MG VIAL ONE (22:15)
[2024-10-10] MEDS ORDERED: MAGNESIUM SULFATE IN WATER 4 GM/100 ML PIGGYBACK IV ONE (22:15)
[2024-10-10] MEDS ORDERED: RINGERS SOLUTION,LACTATED 1,000 ML IV SCH (22:45)
[2024-10-10] MEDS ORDERED: MAGNESIUM SULFATE IN WATER 0.04 GM/ML IV.SOLN IV ONE (22:59)
[2024-10-10] MEDS ORDERED: MAGNESIUM SULFATE IN WATER 500 ML IV SCH (23:00)
[2024-10-10] MEDS ORDERED: MAGNESIUM SULFATE IN WATER 100 ML IV SCH (23:00)
[2024-10-10] MEDS ORDERED: AMPICILLIN SODIUM 2,000 MG VIAL IV ONE (23:00)
[2024-10-10] MEDS ORDERED: BETAMETHASONE ACETATE,SOD PHOS 30 MG/5 ML ML IM ONE (23:00)
[2024-10-10 23:21] VITALS: BP 112/61
[2024-10-10] MEDS ORDERED: NIFEDIPINE ER30 M1 PO (23:21)
[2024-10-10] MEDS ORDERED: VALTREX1000 MG PO (23:22)
[2024-10-10] MEDS ORDERED: PEPCID AC20 MG PO (23:23)
[2024-10-10 23:28] LABS: BASO % 0.3 % (0.1-1.2); EOS # 0.06 (0.04-0.54); EOS % 0.4 % (0.7-7.0); LYMPH # 2.43 (1.18-3.74); LYMPH % 18.1 % (19.3-53.1); MEAN PLATELET VOLUME 12.00 fl (9.4-12.4); MONO # 0.93 (0.24-0.82); MONO % 6.9 % (4.7-12.5); NEUT # 9.63 (1.56-6.13); NEUT % 72.1 % (34.0-71.1); RED CELL DISTRIBUTION WIDTH 14.2 % (11.6-14.4)
[2024-10-10 23:44] LABS: INR 0.94
[2024-10-10 23:48] LABS: ALT/SGPT 13.0 U/L (12-78); AST/SGOT 7.0 U/L (15-37); BILIRUBIN TOTAL 0.17 mg/dL (0.3-1.2); BUN CREA RATIO 10.0 (7.0-25.0); CREATININE SERUM 0.62 mg/dL (0.55-1.02); GFR 114.62; GLOBULINA 3.9 G/DL (2.4-3.5); GLUCOSE FASTING 115.0 mg/dL (65-100); OSMOLALITY SERUM 280.0 MOSM/KG (275-295)
[2024-10-11 03:33] VITALS: BP 121/76
[2024-10-11] MEDS ORDERED: AMPICILLIN SODIUM 1,000 MG VIAL ONE ×2 (03:34→06:58)
[2024-10-11] MEDS ORDERED: AMPICILLIN SODIUM 1,000 MG VIAL IV SCH (04:00)
[2024-10-11 07:10] VITALS: BP 118/58
[2024-10-11] MEDS ORDERED: MAGNESIUM SULFATE IN WATER 0.04 GM/ML IV.SOLN IV ONE (09:08)
[2024-10-11 11:35] VITALS: BP 117/67
[2024-10-11 15:12] VITALS: BP 115/69
[2024-10-11 20:08] VITALS: BP 119/75
[2024-10-11 23:19] VITALS: BP 117/73
[2024-10-12 03:47] VITALS: BP 119/77; O2SAT 100
[2024-10-12] MEDS ORDERED: MAGNESIUM SULFATE IN WATER 0.04 GM/ML IV.SOLN IV ONE (06:05)
[2024-10-12 07:17] VITALS: BP 120/68
[2024-10-12] MEDS ORDERED: OXYTOCIN 20 UNITS/500ML RL PIGGYBAG IV ONE (09:21)
[2024-10-12] MEDS ORDERED: OXYTOCIN 500 ML IV ONE (10:00)
[2024-10-12 11:49] VITALS: BP 98/85
[2024-10-12] MEDS ORDERED: MORPHINE SULFATE 4 MG/ML VIAL IV ONE (13:00)
[2024-10-12 14:10] VITALS: BP 114/68
[2024-10-12] MEDS ORDERED: OXYTOCIN 1,000 ML IV ONE (14:30)
[2024-10-12] MEDS ORDERED: CHLORHEXIDINE GLUCONATE 120 ML BOTTLE TOP ONE (14:30)
[2024-10-12 15:16] VITALS: BP 117/56
[2024-10-12 17:10] VITALS: BP 123/79
[2024-10-12] MEDS ORDERED: SENNA/DOCUSATE SODIUM 1 TAB TABLET PO SCH (21:00)
[2024-10-13 00:07] VITALS: BP 91/65
[2024-10-13 02:00] VITALS: BP 101/64
[2024-10-13 06:52] LABS: BASO % 0.3 % (0.1-1.2); EOS # 0.04 (0.04-0.54); EOS % 0.3 % (0.7-7.0); LYMPH # 2.76 (1.18-3.74); LYMPH % 19.5 % (19.3-53.1); MEAN PLATELET VOLUME 12.00 fl (9.4-12.4); MONO # 1.18 (0.24-0.82); MONO % 8.3 % (4.7-12.5); NEUT # 9.99 (1.56-6.13); NEUT % 70.5 % (34.0-71.1); RED CELL DISTRIBUTION WIDTH 14.6 % (11.6-14.4)
[2024-10-13 08:20] VITALS: BP 100/65
[2024-10-13] MEDS ORDERED: PNV,CALCIUM 72/IRON/FOLIC ACID 1 TAB TABLET PO SCH (09:00)
[2024-10-13 16:00] VITALS: BP 109/66
[2024-10-14 09:16] VITALS: BP 120/74
== END 2024-10-14 17:33 | disposition home or self-care (01) | DRG 768 ==
LOC: LDR 21:55 → OB/GYN 21:55
PROVIDERS: Obstetrics & Gynecology Gynecology; ADMIT Obstetrics & Gynecology; ATTEND Obstetrics & Gynecology
PROC: 4A1HXCZ Monitoring of Products of Conception, Cardiac Rate, External Approach (ICD-10-PCS; 2024-10-10)
PROC: BY4FZZZ Ultrasonography of Third Trimester, Single Fetus (ICD-10-PCS; 2024-10-10)
PROC: 0UCC7ZZ Extirpation of Matter from Cervix, Via Natural or Artificial Opening (ICD-10-PCS; 2024-10-11)
PROC: 10E0XZZ Delivery of Products of Conception, External Approach (ICD-10-PCS; principal; 2024-10-12)
PROC: 0UQG7ZZ Repair Vagina, Via Natural or Artificial Opening (ICD-10-PCS; 2024-10-12)
PROC: 0UQMXZZ Repair Vulva, External Approach (ICD-10-PCS; 2024-10-12)
DX: O71.4 Obstetric high vaginal laceration alone (principal); O60.14X0 Preterm labor third trimester with preterm delivery third trimester, not applicable or unspecified; O71.82 Other specified trauma to perineum and vulva; O42.013 Preterm premature rupture of membranes, onset of labor within 24 hours of rupture, third trimester; O69.81X0 Labor and delivery complicated by cord around neck, without compression, not applicable or unspecified; Z3A.35 35 weeks gestation of pregnancy; Z37.0 Single live birth